=== PATIENT | female | born 1945 | race Native Hawaiian/Other Pacific Islander ===

== ENCOUNTER 2017-02-18 13:08 | Outpatient (CLI) | payer OTHER ==
[2017-02-18 13:33] LABS: PLATELET COUNT 204 K/uL (152-353)
[2017-02-18 13:48] LABS: POTASSIUM 3.5 mmol/L (3.6-5.2); SODIUM 137 mmol/L (136-145)
== END 2017-02-18 19:47 | disposition home or self-care (01) ==
LOC: LABW 13:08
PROVIDERS: Podiatrist
DX: Z01.810 Encounter for preprocedural cardiovascular examination (principal); Z01.811 Encounter for preprocedural respiratory examination; Z01.812 Encounter for preprocedural laboratory examination
CPT/HCPCS: 36415; 80053; 85027; 93005

== ENCOUNTER 2020-11-14 14:02 | Outpatient (CLI) | payer OTHER ==
[2020-11-14 14:19] LABS: POTASSIUM 3.6 mmol/L (3.6-5.2)
== END 2020-11-14 21:41 | disposition home or self-care (01) ==
LOC: LABW 14:02
PROVIDERS: ATTEND Internal Medicine Cardiovascular Disease
DX: Z79.899 Other long term (current) drug therapy (principal); R06.09 Other forms of dyspnea
CPT/HCPCS: 36415; 80048; 83880